=== PATIENT | female | born 1985 | race Caucasian/White ===

== ENCOUNTER 2018-02-17 03:52 | Observation (INO) | payer OTHER ==
[2018-02-17] VITALS (12 sets, daily range): BP systolic 100–144; BP diastolic 53–80; PULSE 56–85; RESP 16–20; TEMP 97.1–98.3; O2SAT 95–99
[~2018-02-17] VITALS: Ht 175.3 cm; Wt 94.6 kg
[~2018-02-17 03:52] MED LIST: HYDR-3533 PO; HYDR200T42 PO; LEXA10TA PO; METHO500 PO; OXYC1SOL5 PO; PAXI20TA26 PO; PROM25TA10 PO
[2018-02-17] MEDS ORDERED: SODIUM CHLORIDE 0.9% FLUSH 10 ML FLUSH IV FLUSH PRN ×2 (04:15→06:15)
[2018-02-17] MEDS ORDERED: BUPR100T4 PO (04:17)
[2018-02-17] MEDS ORDERED: LAMO100T PO (04:17)
[2018-02-17] MEDS ORDERED: ALPR.5 PO (04:18)
[2018-02-17] MEDS ORDERED: PLAQ200T PO (04:18)
[2018-02-17] MEDS ORDERED: BUSP10TA PO (04:19)
[2018-02-17] MEDS ORDERED: FLUV100T PO (04:19)
--- NOTE | 2018-02-17 04:22 | PD ---
HPI Chief Complaint: AMS Time Seen by Provider: 04:05 Travel History International Travel<30 days: No Contact w/Intl Traveler<30days: No Traveled to known affect area: No History of Present Illness HPI 32-year-old female presents to the emergency department by private transportation the care of her spouse for evaluation of confusion, left-sided headache, right-sided chest pain, and jerking tremor since Friday morning with acute worsening upon awakening just prior to arrival to the emergency department. Patient states she is not sure why she is here does not believe that she needs to be here has mild left-sided headache and right-sided chest pain and felt somewhat confused. reports that she was last seen normal approximately 1 AM she was going to sleep and then she awakened him with generalized twitching and jerking movements with seizure form like activity for 5-10 seconds and then seemed confusional afterwards. No trauma no tongue trauma no incontinence. No prior history of seizure form activity. Patient has recently been undergoing medication adjustments by her prescribing physician for anxiety and has been on multiple medications with various dosages and has had increasing twitching and jerking type spasms since medication adjustment has been occurring. Symptoms seem to escalate on Friday such that Friday evening she was having difficulty falling asleep and then again just prior to arrival to the emergency department has been noted episode of significant jerking and twitching while she was not responding to voice or tactile stimulation. As well as history of anxiety/depression disorder patient also has history of Sjogren's syndrome, rheumatoid arthritis, migraines,and kidney stones. LMP: 02/11/18, not . Current medications include plaquenil, lamotrigine, bupropion, fluvoxamine, xanax, and buspirone; buspirone is the newest medication addition. Pain is 5/10 in intensity. PFSH Past Medical History Narrative Medical anxiety/depression disorder, Sjogren's syndrome, rheumatoid arthritis, migraines ,kidney stones, gallbladder disease; no tobacco use no alcohol use; nursing notes reviewed Arthritis: Yes (RHEUMATOID) Depression: Yes (MILD) Cancer: No Cardiovascular Problems: No Cerebrovascular Accident: No Diminished Hearing: No Endocrine: No Gastrointestinal Disorders: Yes ( HX H PYLORI, GALLBLADDER PROBLEMS) Genitourinary: Yes Hepatitis: No Hiatal Hernia: No Immune Disorder: Yes (SJOGRENS SYNDOME) Kidney Stones: Yes Musculoskeletal: No Neurologic: Yes (MIGRAINES) Psychiatric: No Reproductive: No Respiratory: No Migraines: Yes Past Surgical History Abdominal Surgery: No Body Medical Devices: NONE Cardiac Surgery: No Ear Surgery: No Endocrine Surgery: No Eye Surgery: No Genitourinary Surgery: No Gynecologic Surgery: No Oral Surgery: No Thoracic Surgery: No Other Surgery: Yes Social History Alcohol Use: No Tobacco Use: No Substance Use: No Allergies-Medications (Allergen,Severity, Reaction): Coded Allergies: erythromycin base (Unverified Allergy, Mild, SHORTNESS OF BREATH, 02/17/18) Reported Meds & Prescriptions Reported Meds & Active Scripts Active Reported Fluvoxamine (Fluvoxamine Maleate) 100 Mg Tab 200 Mg PO DAILY Buspirone (Buspirone HCl) 10 Mg Tab 10 Mg PO TID Plaquenil (Hydroxychloroquine Sulfate) 200 Mg Tab 200 Mg PO BID Take with food Xanax (Alprazolam) 0.5 Mg Tab 0.5 Mg PO Q8H PRN Lamotrigine 100 Mg Tab 100 Mg PO DAILY Bupropion HCl 100 Mg Tab 150 Mg PO DAILY Review of Systems Except as stated in HPI: all other systems reviewed are Neg General / Constitutional: No: Fever HENT: No: Congestion Cardiovascular: Positive: Chest Pain or Discomfort (right sided), Syncope Respiratory: No: Shortness of Breath Gastrointestinal: Positive: Nausea (in route to the ED none now), No: Vomiting , Abdominal Pain Genitourinary: No: Dysuria, Flank Pain Musculoskeletal: No: Myalgias, Arthralgias Skin: No Rash Neurologic: Positive: Syncope, Tremor, Ataxia, Headache, Change in Mentation, Seizures (possible), No: Weakness, Dizziness, Focal Abnormalities, Coordination Problem, Slurred Speech, Incontinence Psychiatric: Positive: Anxiety Hematologic/Lymphatic: No: Lymph Node Enlargement Physical Exam Narrative GENERAL: Well-developed well-nourished female no acute distress no respiratory distress; GCS 15 SKIN: Warm and dry. HEAD: Atraumatic. Normocephalic. EYES: Pupils equal and round. Extraocular muscles intact. No scleral icterus. No injection or drainage. ENT: No nasal bleeding or discharge. Mucous membranes pink and moist. Airway is patent. NECK: Trachea midline. No JVD. Supple no meningismus. CARDIOVASCULAR: Regular rate and rhythm. RESPIRATORY: No accessory muscle use. Clear to auscultation. Breath sounds equal bilaterally. GASTROINTESTINAL: Abdomen soft, non-tender, nondistended. Hepatic and splenic margins not palpable. MUSCULOSKELETAL: Extremities without clubbing, cyanosis, or edema. No obvious deformities. NEUROLOGICAL: Awake and alert. No obvious cranial nerve deficits. Motor grossly within normal limits. Five out of 5 muscle strength in the arms and legs. No pronator drift. No limb ataxia. Sensory exam grossly intact as tested. DTRs 2+ and equal bilaterally. Normal speech. PSYCHIATRIC: Appropriate mood and affect; insight and judgment normal. Data Data Last Documented VS Vital Signs Date Time Temp Pulse Resp B/P (MAP) Pulse Ox O2 Delivery O2 Flow Rate FiO2 02/17/18 05:20 63 16 103/67 (79) 99 Room Air 02/17/18 04:00 98.3 Orders Orders Electrocardiogram (02/17/18 04:05) Complete Blood Count With Diff (02/17/18 04:05) Comprehensive Metabolic Panel (02/17/18 04:05) Creatine Kinase (Cpk) (02/17/18 04:05) Prothrombin Time / Inr (Pt) (02/17/18 04:05) Act Partial Throm Time (Ptt) (02/17/18 04:05) Thyroid Stimulating Hormone (02/17/18 04:05) Urinalysis - C+S If Indicated (02/17/18 04:05) Chest, Single Ap (02/17/18 04:05) Ct Brain W/O Iv Contrast(Rout) (02/17/18 04:05) Blood Glucose (02/17/18 04:05) Ecg Monitoring (02/17/18 04:05) Iv Access Insert/Monitor (02/17/18 04:05) Oximetry (02/17/18 04:05) Sodium Chloride 0.9% Flush (Ns Flush) (02/17/18 04:15) Drug Screen, Random Urine (02/17/18 04:05) Tylenol (Acetaminophen) (02/17/18 04:05) Salicylates (Aspirin) (02/17/18 04:05) Troponin I (02/17/18 04:05) Magnesium (Mg) (02/17/18 04:05) Ed Urine Pregnancytest Poc (02/17/18 04:05) Sodium Chlor 0.9% 1000 Ml Inj (Ns 1000 M (02/17/18 04:15) Ammonia (02/17/18 04:41) CKMB (02/17/18 04:10) CKMB% (02/17/18 04:10) Sodium Chlorid 0.9% 500 Ml Inj (Ns 500 M (02/17/18 05:00) Ketorolac Inj (Toradol Inj) (02/17/18 05:30) D-Dimer (02/17/18 05:25) Place In Observation (02/17/18 ) Vital Signs (Adult) Q4H (02/17/18 06:04) Activity Oob With Assistance (02/17/18 06:04) Diet Regular Basic (02/17/18 Breakfast) Sodium Chloride 0.9% Flush (Ns Flush) (02/17/18 06:15) Sodium Chloride 0.9% Flush (Ns Flush) (02/17/18 09:00) Acetaminophen (Tylenol) (02/17/18 06:15) Ondansetron Inj (Zofran Inj) (02/17/18 06:15) Basic Metabolic Panel (Bmp) (02/18/18 06:00) Complete Blood Count With Diff (02/18/18 06:00) Naloxone Inj (Narcan Inj) (02/17/18 06:15) Docusate Sodium-Senna (Joselin-Colace) (02/17/18 09:00) Magnesium Hydroxide Liq (Milk Of Magnesi (02/17/18 06:15) Sennosides (Senokot) (02/17/18 06:15) Bisacodyl Supp (Dulcolax Supp) (02/17/18 06:15) Lactulose Liq (Lactulose Liq) (02/17/18 06:15) Eeg Study (02/17/18 ) Consult Neurology (02/17/18 ) Lorazepam Inj (Ativan Inj) (02/17/18 06:15) ^ Seizure Precautions (02/17/18 06:04) Admit Order (Ed Use Only) (02/17/18 ) Aquaculture Worker / Telemetry HUGO.Q8H (02/17/18 06:07) Diet Heart Healthy (02/17/18 Breakfast) Activity Bed Rest (02/17/18 06:07) Notify Dr: Other (02/17/18 06:07) Labs Laboratory Tests Test 02/17/18 04:10 02/17/18 04:40 02/17/18 04:54 White Blood Count 5.8 TH/MM3 Red Blood Count 4.72 MIL/MM3 Hemoglobin 13.6 GM/DL Hematocrit 40.1 % Mean Corpuscular Volume 85.0 FL Mean Corpuscular Hemoglobin 28.8 PG Mean Corpuscular Hemoglobin Concent 33.9 % Red Cell Distribution Width 12.7 % Platelet Count 257 TH/MM3 Mean Platelet Volume 8.5 FL Neutrophils (%) (Auto) 46.5 % Lymphocytes (%) (Auto) 38.5 % Monocytes (%) (Auto) 10.6 % Eosinophils (%) (Auto) 3.5 % Basophils (%) (Auto) 0.9 % Neutrophils # (Auto) 2.7 TH/MM3 Lymphocytes # (Auto) 2.2 TH/MM3 Monocytes # (Auto) 0.6 TH/MM3 Eosinophils # (Auto) 0.2 TH/MM3 Basophils # (Auto) 0.1 TH/MM3 CBC Comment DIFF FINAL Differential Comment Prothrombin Time 10.1 SEC Prothromb Time International Ratio 1.0 RATIO Activated Partial Thromboplast Time 25.9 SEC Blood Urea Nitrogen 11 MG/DL Creatinine 0.95 MG/DL Random Glucose 89 MG/DL Total Protein 8.1 GM/DL Albumin 4.0 GM/DL Calcium Level 8.8 MG/DL Magnesium Level 2.3 MG/DL Alkaline Phosphatase 102 U/L Aspartate Amino Transf (AST/SGOT) 30 U/L Alanine Aminotransferase (ALT/SGPT) 30 U/L Total Bilirubin 0.1 MG/DL Sodium Level 140 MEQ/L Potassium Level 3.8 MEQ/L Chloride Level 106 MEQ/L Carbon Dioxide Level 29.1 MEQ/L Anion Gap 5 MEQ/L Estimat Glomerular Filtration Rate 68 ML/MIN Total Creatine Kinase 560 U/L Creatine Kinase MB 0.8 NG/ML Creatine Kinase MB % 0.1 % Troponin I LESS THAN 0.02 NG/ML Thyroid Stimulating Hormone 3rd Gen 3.700 uIU/ML Salicylates Level 2.5 MG/DL Acetaminophen Level LESS THAN 2.0 MCG/ML Urine Collection Type CLEAN CATCH Urine Color YELLOW Urine Turbidity CLEAR Urine pH 6.5 Urine Specific [place] 1.010 Urine Protein NEG mg/dL Urine Glucose (UA) NEG mg/dL Urine Ketones NEG mg/dL Urine Occult Blood TRACE Urine Nitrite NEG Urine Bilirubin NEG Urine Urobilinogen 0.2 MG/DL Urine Leukocyte Esterase NEG Urine RBC 4-9 /hpf Urine Squamous Epithelial Cells 0-5 /hpf Urine Bacteria OCC /hpf Microscopic Urinalysis Comment CULT NOT INDICATED Urine Opiates Screen NEG Urine Barbiturates Screen NEG Urine Amphetamines Screen NEG Urine Benzodiazepines Screen NEG Urine Cocaine Screen NEG Urine Cannabinoids Screen POS Ammonia 24 MCMOL/L [facility] Medical Decision Making Medical Screen Exam Complete: Yes Emergency Medical Condition: Yes Medical Record Reviewed: Yes Interpretation(s) EKG: Normal sinus rhythm rate [address] elevation injury pattern or ectopy noted, nonspecific T-wave septally POC hcg: negative CT brain w/o: CONCLUSION: Negative noncontrast head CT. Trevin Ledesma MD on February 17, 2018 at 5:19 Board Certified Radiologist. This report was verified electronically. UDS: Cannabinoids coags: grossly wnl NH3: 24, not elevated Acetaminophen level/salicylate level: Not elevated Differential Diagnosis Seizure, syncope, adverse medication reaction, migraine variant, ICH, viral syndrome, atypical chest pain, PE, CAD; also to consider serotonin syndrome, conversion reaction, tia/cva Narrative Course Patient placed on cardiac surgeon with continuous pulse oximetry IV access obtain stat CT brain noncontrast ordered along with specimens collected and sent for resulting EKG performed; NIHSS: 0; glucose 94 @ 4:33 reports she is back to her normal; patient reports persistent mild 5/10 headache not like her migraines only mild photophobia no nausea no focal numbness or weakness. @ 4:[address] Patient aware of abnormal CK and recommendation for observation admission for adverse medication reaction/interaction possible bupropion altered mentation versus polypharmacy versus migraine variant; this is been discussed with on- call medicine will admit for observation Physician Communication Physician Communication discussed with Dr Power -- OBS Diagnosis Primary Impression: Altered mental status, unspecified Qualified Codes: R41.82 - Altered mental status, unspecified Additional Impression: Adverse drug interaction Qualified Codes: T50.905A - Adverse effect of unspecified drugs, medicaments and biological substances, initial encounter Admitting Information Admitting Physician Requests: Observation Ashley Whitt MD Feb 17, 2018 04:22
[2018-02-17 04:27] LABS: AUTOMATED NEUTROPHIL # 2.7 TH/MM3 (1.8-7.7); BASOPHIL # 0.1 TH/MM3 (0-0.2); BASOPHIL % 0.9 % (0.0-2.0); EOSINOPHIL # 0.2 TH/MM3 (0-0.4); EOSINOPHIL % 3.5 % (0.0-4.0); HEMATOCRIT 40.1 % (35.0-46.0); HEMOGLOBIN 13.6 GM/DL (11.6-15.3); LYMPH % 38.5 % (9.0-44.0); LYMPHOCYTE # 2.2 TH/MM3 (1.0-4.8); MEAN CORPUSCULAR HEMOGLOBIN 28.8 PG (27.0-34.0); MEAN CORPUSCULAR HGB CONC 33.9 % (32.0-36.0); MEAN PLATELET VOLUME 8.5 FL (7.0-11.0); MONO % 10.6 % (0.0-8.0); MONOCYTE # 0.6 TH/MM3 (0-0.9); NEUT % 46.5 % (16.0-70.0); PLATELET COUNT 257 TH/MM3 (150-450); RED BLOOD COUNT 4.72 MIL/MM3 (4.00-5.30); RED CELL DISTRIBUTION WIDTH 12.7 % (11.6-17.2); WHITE BLOOD COUNT 5.8 TH/MM3 (4.0-11.0)
[2018-02-17 04:32] LABS: CHLORIDE 106 MEQ/L (98-107); SODIUM (NA) 140 MEQ/L (136-145)
[2018-02-17 04:35] LABS: CALCIUM 8.8 MG/DL (8.5-10.1)
[2018-02-17 04:36] LABS: BICARBONATE 29.1 MEQ/L (21.0-32.0); BLOOD UREA NITROGEN 11 MG/DL (7-18); GLUCOSE,RANDOM 89 MG/DL (74-106); MAGNESIUM 2.3 MG/DL (1.5-2.5); PROTHROMBIN TIME - PATIENT 10.1 SEC (9.8-11.6)
[2018-02-17 04:39] LABS: ALT (GPT) 30 U/L (10-53); AST (GOT) 30 U/L (15-37); CREATININE 0.95 MG/DL (0.50-1.00); GLOMERULAR FILTRATION RATE 68 ML/MIN (>89)
[2018-02-17 04:40] LABS: TOTAL BILIRUBIN ADULT 0.1 MG/DL (0.2-1.0); TOTAL PROTEIN 8.1 GM/DL (6.4-8.2)
[2018-02-17 04:42] LABS: ALKALINE PHOSPHATASE 102 U/L (45-117)
[2018-02-17 04:44] LABS: TROPONIN I LESS THAN 0.02 NG/ML (0.02-0.05)
[2018-02-17 04:45] LABS: BILIRUBIN, URINE NEG (NEG); BLOOD, URINE TRACE (NEG); GLUCOSE,URINE NEG (NEG); KETONE, URINE NEG (NEG); NITRITE,URINE NEG (NEG); PH, URINE 6.5 (5.0-8.5); URINE COLOR YELLOW (YELLW/STRAW); URINE LEUKOCYTE ESTERASE NEG (NEG)
[2018-02-17] MEDS: SODIUM CHLOR 0.9% 1000 ML INJ 1,000 ML IV SCH ×3 (04:58→18:52)
[2018-02-17] MEDS ORDERED: SODIUM CHLORID 0.9% 500 ML INJ 500 ML IV ONE (05:00)
[2018-02-17 05:17] LABS: BACTERIA, URINE OCC /hpf; SQUAMOUS EPITHELIAL CELL URINE 0-5 /hpf (0-5)
--- NOTE | 2018-02-17 05:20 | RADRPT ---
EXAM DATE/TIME: 02/17/2018 04:35 [facility] COMPARISON: No previous studies available for comparison. INDICATIONS : Altered mental status. RADIATION DOSE: 55.12 CTDIvol (mGy) MEDICAL HISTORY : Migraines. SURGICAL HISTORY : None. ENCOUNTER: Initial ACUITY: 1 day PAIN SCALE: 5/10 LOCATION: cranial TECHNIQUE: Multiple contiguous axial images were obtained of the head. Using automated exposure control and adj ustment of the mA and/or kV according to patient size, radiation dose was kept as low as reasonably a chievable to obtain optimal diagnostic quality images. DICOM format image data is available electro nically for review and comparison. FINDINGS: CEREBRUM: The ventricles are normal for age. No evidence of midline shift, mass lesion, hemorrhage or acute in farction. No extra-axial fluid collections are seen. POSTERIOR FOSSA: The cerebellum and brainstem are intact. The 4th ventricle is midline. The cerebellopontine angle i s unremarkable. EXTRACRANIAL: The visualized portion of the orbits is intact. SKULL: The calvaria is intact. No evidence of skull fracture. CONCLUSION: Negative noncontrast head CT. Trevin Ledesma MD on February 17, 2018 at 5:19 Board Certified Radiologist. This report was verified electronically.
[2018-02-17] MEDS ORDERED: KETOROLAC TROMETHAMINE 30 MG/ML (IVP) VIAL IV PUSH ONE (05:30)
--- NOTE | 2018-02-17 05:37 | RADRPT ---
EXAM DATE/TIME: 02/17/2018 04:17 [facility] COMPARISON: CHEST SINGLE AP, January 09, 2016, 4:00. INDICATIONS : Chest pain. MEDICAL HISTORY : Rheumatoid arthritis. Sjogren's syndrome. SURGICAL HISTORY : None. ENCOUNTER: Initial ACUITY: 1 day PAIN SCORE: 3/10 LOCATION: Right chest FINDINGS: A single view of the chest demonstrates the lungs to be symmetrically aerated without evidence of mas s, infiltrate or effusion. The cardiomediastinal contours are unremarkable. Osseous structures are intact. CONCLUSION: No acute cardiopulmonary disease demonstrated. Trevin Ledesma MD on February 17, 2018 at 5:35 Board Certified Radiologist. This report was verified electronically.
[2018-02-17 05:42] LABS: ACETAMINOPHEN LESS THAN 2.0 MCG/ML (10.0-30.0)
[2018-02-17] MEDS ORDERED: LORazepam 2 MG/ML VIAL IV PUSH PRN (06:15)
[2018-02-17] MEDS ORDERED: MAGNESIUM HYDROXIDE SUSP 30 ML CUP PO PRN (06:15)
[2018-02-17] MEDS ORDERED: ONDANSETRON HCL 4 MG/2 ML VIAL IVP PRN (06:15)
[2018-02-17] MEDS ORDERED: LACTULOSE SYRUP 20 GM/30 ML CUP PO PRN (06:15)
[2018-02-17] MEDS ORDERED: SENNOSIDES 8.6 MG TAB PO PRN (06:15)
[2018-02-17] MEDS ORDERED: ACETAMINOPHEN 325 MG TAB PO PRN (06:15)
[2018-02-17] MEDS ORDERED: NALOXONE HCL 0.4 MG/ML AMP IV PUSH PRN (06:15)
[2018-02-17] MEDS ORDERED: BISACODYL 10 MG SUPP RECTAL PRN (06:15)
[2018-02-17] MEDS: SODIUM CHLORIDE 0.9% FLUSH 10 ML FLUSH IV FLUSH SCH ×2 (08:49→20:25)
[2018-02-17] MEDS: DOCUSATE SODIUM 50 MG/SENNA 8.6 MG TAB PO SCH ×2 (08:49→20:25)
--- NOTE | 2018-02-17 11:41 | HHI.HP ---
[facility] Primary Care Physician Blu Brown MD Admission Diagnosis altered mental status; adverse medication reaction Diagnoses: Chief Complaint: Altered mental status Travel History International Travel<30 Days: No Contact w/Intl Traveler <30 Da: No Traveled to Known Affected Are: No History of Present Illness Patient is a 32-year-old female with a history of anxiety and depression who has been in follow with her care provider for management of symptoms of depression and sadness. She has had multiple medication changes over the last several months and has began having neurological symptoms in the form of tremors , confusions and convulsions over the last 48 hours. Patient was brought to the emergency room by her who is a customer support executive and was worried that she was having seizures. There is no history of seizures. Patient did have a headache prior to the seizure event and this improved with Toradol in the emergency room. The patient has been recommended for further evaluation by neurology and psychiatry due to these complaints. She also has a history of Sjogren's syndrome and rheumatoid arthritis and is under the care of a visualizer. For this she has been taking Plaquenil for the last 4 years and fluvoxamine Review of Systems Constitutional: COMPLAINS OF: Fatigue, DENIES: Diaphoretic episodes, Fever, Weight gain, Weight loss, Chills, Dizziness, Change in appetite, Night Sweats Endocrine: DENIES: Abnorml menstrual pattern, Heat/cold intolerance, Polydipsia , Polyuria, Polyphagia Eyes: DENIES: Blurred vision, Diplopia, Eye inflammation, Eye pain, Vision loss , Photosensitivity, Double Vision Ears, nose, mouth, throat: DENIES: Tinnitus, Hearing loss, Vertigo, Nasal discharge, Oral lesions, Throat pain, Hoarseness, Ear Pain, Running Nose, Epistaxis, Sinus Pain, Toothache, Odynophagia Respiratory: DENIES: Apneas, Cough, Snoring, Wheezing, Hemoptysis, Sputum production, Shortness of breath Cardiovascular: DENIES: Chest pain, Palpitations, Syncope, Dyspnea on Exertion , PND, Lower Extremity Edema, Orthopnea, Claudication Gastrointestinal: DENIES: Abdominal pain, Black stools, Bloody stools, Constipation, Diarrhea, Nausea, Vomiting, Difficulty Swallowing, Anorexia Genitourinary: DENIES: Abnormal vaginal bleeding, Dysmenorrhea, Dyspareunia, Sexual dysfunction, Urinary frequency, Urinary incontinence, Urgency, Hematuria , Dysuria, Nocturia, Vaginal discharge Musculoskeletal: DENIES: Joint pain, Muscle aches, Stiffness, Joint Swelling, Back pain, Neck pain Integumentary: DENIES: Abnormal pigmentation, Pruritus, Rash, Nail changes, Breast masses, Breast skin changes, Nipple discharge Hematologic/lymphatic: DENIES: Bruising, Lymphadenopathy Immunologic/allergic: DENIES: Eczema, Urticaria Neurologic: COMPLAINS OF: Headache, Seizures, Tremor, DENIES: Abnormal gait, Localized weakness, Paresthesias, Speech Problems, Poor Balance Psychiatric: COMPLAINS OF: Anxiety, Confusion, Mood changes, Depression, DENIES : Hallucinations, Agitation, Suicidal Ideation, Homicidal Ideation, Delusions Except as stated in HPI: all other systems reviewed are Neg Past Family Social History Past Medical History Depression/anxiety Sjogren's syndrome Rheumatoid arthritis Past Surgical History None Reported Medications Reviewed in the EMR, patient has been on bupropion, lamotrigine, Plaquenil, buspirone, fluvoxamine Allergies: Coded Allergies: erythromycin base (Unverified Allergy, Mild, SHORTNESS OF BREATH, 02/17/18) Active Ordered Medications Reviewed in the EMR Family History Family history depression Social History No tobacco or alcohol dependency Works in radiology at [employer] Physical Exam Vital Signs Vital Signs Date Time Temp Pulse Resp B/P (MAP) Pulse Ox O2 Delivery O2 Flow Rate FiO2 02/17/18 08:00 97.2 64 16 109/53 (71) 99 02/17/18 07:22 02/17/18 07:02 98 Room Air 02/17/18 07:00 68 18 113/71 (85) 98 Room Air 02/17/18 06:20 73 16 100/59 (73) 99 Room Air 02/17/18 05:20 63 16 103/67 (79) 99 Room Air 02/17/18 04:16 85 18 95 Room Air 02/17/18 04:00 98.3 85 18 144/80 (101) 95 Physical Exam GENERAL: This is a well-nourished, well-developed patient, tearful but calm SKIN: No rashes, ecchymoses or lesions. Cool and dry. HEAD: Atraumatic. Normocephalic. No temporal or scalp tenderness. EYES: Pupils equal round and reactive. Extraocular motions intact. No scleral icterus. No injection or drainage. ENT: Nose without bleeding, purulent drainage or septal hematoma. Throat without erythema, tonsillar hypertrophy or exudate. Uvula midline. Airway patent. NECK: Trachea midline. No JVD or lymphadenopathy. Supple, nontender, no meningeal signs. CARDIOVASCULAR: Regular rate and rhythm without murmurs, gallops, or rubs. RESPIRATORY: Clear to auscultation. Breath sounds equal bilaterally. No wheezes , rales, or rhonchi. GASTROINTESTINAL: Abdomen soft, non-tender, nondistended. No hepato-splenomegaly , or palpable masses. No guarding. MUSCULOSKELETAL: Extremities without clubbing, cyanosis, or edema. No joint tenderness, effusion, or edema noted. No calf tenderness. Negative Homans sign bilaterally. NEUROLOGICAL: Awake and alert. Cranial nerves II through XII intact. Motor and sensory grossly within normal limits. Five out of 5 muscle strength in all muscle groups. Normal speech. Laboratory Laboratory Tests Test 02/17/18 04:10 02/17/18 04:40 02/17/18 04:54 White Blood Count 5.8 Red Blood Count 4.72 Hemoglobin 13.6 Hematocrit 40.1 Mean Corpuscular Volume 85.0 Mean Corpuscular Hemoglobin 28.8 Mean Corpuscular Hemoglobin Concent 33.9 Red Cell Distribution Width 12.7 Platelet Count 257 Mean Platelet Volume 8.5 Neutrophils (%) (Auto) 46.5 Lymphocytes (%) (Auto) 38.5 Monocytes (%) (Auto) 10.6 Eosinophils (%) (Auto) 3.5 Basophils (%) (Auto) 0.9 Neutrophils # (Auto) 2.7 Lymphocytes # (Auto) 2.2 Monocytes # (Auto) 0.6 Eosinophils # (Auto) 0.2 Basophils # (Auto) 0.1 CBC Comment DIFF FINAL Differential Comment Prothrombin Time 10.1 Prothromb Time International Ratio 1.0 Activated Partial Thromboplast Time 25.9 D-Dimer Quantitative (PE/DVT) 0.33 Blood Urea Nitrogen 11 Creatinine 0.95 Random Glucose 89 Total Protein 8.1 Albumin 4.0 Calcium Level 8.8 Magnesium Level 2.3 Alkaline Phosphatase 102 Aspartate Amino Transf (AST/SGOT) 30 Alanine Aminotransferase (ALT/SGPT) 30 Total Bilirubin 0.1 Sodium Level 140 Potassium Level 3.8 Chloride Level 106 Carbon Dioxide Level 29.1 Anion Gap 5 Estimat Glomerular Filtration Rate 68 Total Creatine Kinase 560 Creatine Kinase MB 0.8 Creatine Kinase MB % 0.1 Troponin I LESS THAN 0.02 Thyroid Stimulating Hormone 3rd Gen 3.700 Salicylates Level 2.5 Acetaminophen Level LESS THAN 2.0 Urine Collection Type CLEAN CATCH Urine Color YELLOW Urine Turbidity CLEAR Urine pH 6.5 Urine Specific [place] 1.010 Urine Protein NEG Urine Glucose (UA) NEG Urine Ketones NEG Urine Occult Blood TRACE Urine Nitrite NEG Urine Bilirubin NEG Urine Urobilinogen 0.2 Urine Leukocyte Esterase NEG Urine RBC 4-9 Urine Squamous Epithelial Cells 0-5 Urine Bacteria OCC Microscopic Urinalysis Comment CULT NOT INDICATED Urine Opiates Screen NEG Urine Barbiturates Screen NEG Urine Amphetamines Screen NEG Urine Benzodiazepines Screen NEG Urine Cocaine Screen NEG Urine Cannabinoids Screen POS Ammonia 24 Result Diagram: 02/17/1840902/17/18409 Assessment and Plan Problem List: (1) Adverse drug interaction ICD Code: T50.905A - Adverse effect of unspecified drugs, medicaments and biological substances, initial encounter Status: Acute Plan: Patient appears to have had multiple drugs for anxiety depression over the last several months. She appears to have quite a bit of side effects and perhaps this is due to her anti-drugs interacting with her current medications for her rheumatological processes. Psychiatry to follow-up for further drug recommendations Rule out organic causes as well (2) Altered mental status, unspecified ICD Code: R41.82 - Altered mental status, unspecified Status: Acute Plan: Appears resolved and likely medication related with probable toxic encephalopathy We will continue observation Electrolytes stable CT of the head unremarkable EEG pending (3) Anxiety and depression ICD Code: F41.9 - Anxiety disorder, unspecified; F32.9 - Major depressive disorder, single episode, unspecified Plan: Patient on multiple therapeutic agents which appear to have been changed rather frequently. Will appreciate psychiatric input with further workup. Patient had adverse reaction on Klonopin with suicidal thoughts. At this time there is no suicidal or homicidal ideation Problem Qualifiers (1) Adverse drug interaction: Qualified Codes: T50.905A - Adverse effect of unspecified drugs, medicaments and biological substances, initial encounter (2) Altered mental status, unspecified: Qualified Codes: R41.82 - Altered mental status, unspecified Rola Estrada MD Feb 17, 2018 11:41
--- NOTE | 2018-02-17 15:30 | EKG ---
Date Performed: 02/17/2018 Time Performed: 04:16:59 PTAGE: 32 years EKG: Sinus rhythm NORMAL ECG Since the PREVIOUS TRACING , no significant change noted PREVIOUS TRACIN01/09/2016 03.03 DOCTOR: Joel Pena Interpretating Date/Time 02/17/2018 15:22:44
--- NOTE | 2018-02-17 20:16 | MB ---
cc: Josselyn Garcia MD, Dalia MD DATE: 02/17/2018 REASON FOR CONSULTATION: Possible seizure. 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 She has not been able to see a psychiatrist, has been put on multiple medications and changes over the last several months. The last medicine was BuSpar. She cannot tell me the dose. She was feeling better then the last few days started having either myoclonic type events versus possible seizures. No incontinence, no tongue biting. Some confusion afterwards. Psychiatry is pending to see her. She has taking Plaquenil for the last 4 years as well as Fluvoxamine. PAST MEDICAL HISTORY: History of anxiety, depression, Sjogren's, rheumatoid arthritis, migraines and nephrolithiasis. SURGICAL HISTORY: None. MEDICATIONS: Her home medicines are reviewed Bupropion, buspirone, lamotrigine, Plaquenil and fluvoxamine. CURRENT MEDICATIONS: P.r.n. such as Ativan, magnesium, hydroxide, Narcan, Zofran, etc. ALLERGIES: ERYTHROMYCIN. FAMILY HISTORY: Depression. SOCIAL HISTORY: No tobacco or alcohol. 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 . PHYSICAL EXAMINATION: VITAL SIGNS: Temperature is 97.4, pulse 72, respiratory rate 16, blood pressure 128/62. NEUROLOGIC: She is awake, alert, oriented, fluent, at times tearful. Pupils reactive. Face symmetrical. Tongue midline. Motor quiñones, she does not exhibit any signs of weakness as far as drift or leg lag. Toes are downgoing. DTRs are 1+. Gait is withheld. Cerebellar is normal. IMAGING: Chest x-ray: Nothing acute. CT head negative. LABORATORY DATA: CBC is really unremarkable. Coag panel unremarkable. Chemistries - CK is 560. Ammonia 24. GFR 68. TSH normal. Urine really unremarkable. Tox screen positive for cannabinoids. IMPRESSION: Possible seizure versus myoclonic type reaction from medications, toxic etiology. She has no history of ever having seizures. Recommend having psychiatry assessed her, take her off of all of her medications. I would continue her lamotrigine since it does have an antiepileptic indication. I am not sure what her current dose it. Looking back at the emergency room notes it states 100 mg daily. Certainly, she can continue that, but there may be some problems with the fluvoxamine with the buspirone, as well as the bupropion. Bupropion certainly can contribute to seizures. She states she has felt the best she ever did about a year ago when she was on Lexapro with bupropion, however, that was stopped because it seemed that the treatment failed and her depression worsened. We will get an electroencephalogram report that was completed today. Maintain seizure precautions. She has what she describes as shakes when she falls asleep, but not when she awakens. It seems like it only occurring when she falls asleep, which I would not be too concerned about. It does not appear when she wakes up. At this point, we will continue current care. If she is stable from my perspective, she certainly can be discharged home with psychiatrist recommendations. I would be glad to see her as an outpatient in the office. MD GUERDA Sommer/ , 07:53 PM , 08:14 PM
[2018-02-18] VITALS: BP 111/54; PULSE 69; RESP 20; TEMP 96.8; O2SAT 93
[2018-02-18] MEDS: SODIUM CHLOR 0.9% 1000 ML INJ 1,000 ML IV SCH (03:02)
[2018-02-18 04:00] VITALS: BP 116/63; PULSE 67; RESP 20; TEMP 95.6; O2SAT 99
[2018-02-18 06:29] LABS: AUTOMATED NEUTROPHIL # 1.7 TH/MM3 (1.8-7.7); BASOPHIL % 0.8 % (0.0-2.0); EOSINOPHIL # 0.2 TH/MM3 (0-0.4); EOSINOPHIL % 3.2 % (0.0-4.0); HEMATOCRIT 35.6 % (35.0-46.0); HEMOGLOBIN 11.6 GM/DL (11.6-15.3); LYMPH % 48.9 % (9.0-44.0); LYMPHOCYTE # 2.3 TH/MM3 (1.0-4.8); MEAN CELL VOLUME 85.9 FL (80.0-100.0); MEAN CORPUSCULAR HEMOGLOBIN 28.1 PG (27.0-34.0); MEAN CORPUSCULAR HGB CONC 32.7 % (32.0-36.0); MEAN PLATELET VOLUME 8.4 FL (7.0-11.0); MONO % 10.9 % (0.0-8.0); MONOCYTE # 0.5 TH/MM3 (0-0.9); NEUT % 36.2 % (16.0-70.0); PLATELET COUNT 199 TH/MM3 (150-450); RED BLOOD COUNT 4.14 MIL/MM3 (4.00-5.30); RED CELL DISTRIBUTION WIDTH 12.2 % (11.6-17.2); WHITE BLOOD COUNT 4.7 TH/MM3 (4.0-11.0)
[2018-02-18 06:50] LABS: CALCIUM 8.2 MG/DL (8.5-10.1)
[2018-02-18 06:51] LABS: BICARBONATE 26.1 MEQ/L (21.0-32.0)
[2018-02-18 06:54] LABS: CREATININE 0.63 MG/DL (0.50-1.00)
[2018-02-18 07:50] VITALS: BP 123/85; PULSE 66; RESP 20; TEMP 97.9; O2SAT 98
[2018-02-18] MEDS: DOCUSATE SODIUM 50 MG/SENNA 8.6 MG TAB PO SCH (08:09)
[2018-02-18] MEDS: SODIUM CHLORIDE 0.9% FLUSH 10 ML FLUSH IV FLUSH SCH (08:09)
--- NOTE | 2018-02-18 08:27 | MG ---
cc: Candelario Houser MD REFERRING PHYSICIAN: Dr. Power INDICATIONS: An EEG was obtained on this 32 years old patient with history of movement, jerking, possible seizures. DESCRIPTION: The patient is described as awake. There are low to mid amplitude 10-12 per second alpha rhythms diffusely. There is low-amplitude beta activity frontally. The patient is drowsy and there are some theta rhythms. There is more beta activity in drowsiness. Photic stimulation showed no changes. INTERPRETATION: Normal awake and drowsy electroencephalogram. Candelario Houser MD [facility]/ , 09:02 PM , 09:30 PM
[2018-02-18] MEDS ORDERED: ALPR.5 PO (10:26)
--- NOTE | 2018-02-18 10:27 | HHI.DCPOC ---
Discharge Care Plan Diagnosis: (1) Anxiety and depression Goals to Promote Your Health * To prevent worsening of your condition and complications * To maintain your health at the optimal level Directions to Meet Your Goals Take your medications as prescribed Follow your dietary instruction Follow activity as directed Keep your appointments as scheduled Take your immunizations and boosters as scheduled If your symptoms worsen call your PCP, if no PCP go to Urgent Care Center or Emergency Room Smoking is Dangerous to Your Health. Avoid second hand smoke Call the 24-hour hour crisis hotline for domestic abuse at Rola Estrada MD Feb 18, 2018 10:27
--- NOTE | 2018-02-18 10:29 | HHI.DS ---
Discharge Summary Admission Date Feb 17, 2018 at 06:08 Discharge Date: Feb 18, 2018 Admitting Diagnosis altered mental status; adverse medication reaction (1) Adverse drug interaction ICD Code: T50.905A - Adverse effect of unspecified drugs, medicaments and biological substances, initial encounter Status: Acute (2) Altered mental status, unspecified ICD Code: R41.82 - Altered mental status, unspecified Status: Acute (3) Anxiety and depression ICD Code: F41.9 - Anxiety disorder, unspecified; F32.9 - Major depressive disorder, single episode, unspecified Procedures none Brief History - From Admission Patient is a 32-year-old female with a history of anxiety and depression who has been in follow with her care provider for management of symptoms of depression and sadness. She has had multiple medication changes over the last several months and has began having neurological symptoms in the form of tremors , confusions and convulsions over the last 48 hours. Patient was brought to the emergency room by her who is a tape librarian and was worried that she was having seizures. There is no history of seizures. Patient did have a headache prior to the seizure event and this improved with Toradol in the emergency room. The patient has been recommended for further evaluation by neurology and psychiatry due to these complaints. She also has a history of Sjogren's syndrome and rheumatoid arthritis and is under the care of a director market intelligence. For this she has been taking Plaquenil for the last 4 years and fluvoxamine CBC/BMP: 02/18/18 0605 02/18/18 0605 Significant Findings Laboratory Tests Test 02/17/18 04:10 02/17/18 04:40 02/17/18 04:54 02/18/18 06:05 Monocytes (%) (Auto) 10.6 % (0.0-8.0) 10.9 % (0.0-8.0) Total Bilirubin 0.1 MG/DL (0.2-1.0) Estimat Glomerular Filtration Rate 68 ML/MIN (>89) Total Creatine Kinase 560 U/L (26-192) Troponin I LESS THAN 0.02 NG/ML Salicylates Level 2.5 MG/DL (2.8-20.0) Acetaminophen Level LESS THAN 2.0 MCG/ML Urine RBC 4-9 /hpf (0-3) Urine Bacteria OCC /hpf (NONE) Urine Cannabinoids Screen POS (NEG) Lymphocytes (%) (Auto) 48.9 % (9.0-44.0) Neutrophils # (Auto) 1.7 TH/MM3 (1.8-7.7) Calcium Level 8.2 MG/DL (8.5-10.1) Chloride Level 113 MEQ/L (98-107) Imaging Last Impressions Head CT 02/17/18404 Signed Impressions: Service Date/Time: Saturday, February 17, 2018 04:35 - CONCLUSION: Negative noncontrast head CT. Trevin Ledesma MD Chest X-Ray 02/17/18404 Signed Impressions: Service Date/Time: Saturday, February 17, 2018 04:17 - CONCLUSION: No acute cardiopulmonary disease demonstrated. Trevin Ledesma MD Pt update on day of discharge Doing better EEG unremarkable Neurology and psychiatry consultations appreciated Hospital Course Patient is a 29-year-old female with history of anxiety and depression. She did have adverse reaction to multiple medications prescribed and likely a early serotonin syndrome. Patient's medications were adjusted by psychiatry. She was discharged home to continue with outpatient follow-up Pt Condition on Discharge: Good Discharge Disposition: Discharge Home Discharge Time: <= 30 minutes Discharge Instructions DIET: Follow Instructions for: As Tolerated, No Restrictions Activities you can perform: Regular-No Restrictions Follow up Referrals: Psychiatry Adult - 03/02/18 with Monroe Cho M.d. Continued Medications: Alprazolam (Xanax) 0.5 Mg Tab 0.5 MG PO Q8H PRN for ANXIETY, #30 TAB 0 Refills (This prescription has been renewed) Hydroxychloroquine (Plaquenil) 200 Mg Tab 200 MG PO BID, #60 TAB 0 Refills Take with food Discontinued Medications: Lamotrigine (Lamotrigine) 100 Mg Tab 100 MG PO DAILY for Control Seizures, #30 TAB 0 Refills Rola Estrada MD Feb 18, 2018 10:29
--- NOTE | 2018-02-18 11:11 | PD.PSY.CON ---
Provisional Diagnosis Admission Date Feb 17, 2018 at 06:08 Friedens I. Major depressive disorder, recurrent, without psychosis, panic disorder, cannabis use disorder Friedens II. Deferred Friedens III. Sjogren's syndrome Friedens IV. Multiple psychotropic Friedens V. 55 History of Present Illness Service Psychiatry Consult Requested By Medicine Reason for Consult Altered mental status Primary Care Physician Blu Brown MD HPI The patient is a 32-year-old woman, , domiciled in [place] , no kids, employed at [employer], with psychiatric history of depression and anxiety, no previous psychiatric hospitalizations, no previous suicide attempts, she has been prescribed by Dr. Greco with Luvox 200 mg, lamotrigine 200 mg, Xanax 0.5 mg 3 times daily, BuSpar 20 mg 3 times daily, Wellbutrin 150 mg twice daily, she also has history of cannabis use disorder, medical history of Sjogren's disease,.She has had multiple medication changes over the last several months and has began having neurological symptoms in the form of tremors, confusions and convulsions over the last 48 hours. Patient was brought to the emergency room by her who is a middle school math teacher and was worried that she was having seizures. There is no history of seizures. Patient did have a headache prior to the seizure event and this improved with Toradol in the emergency room. The patient has been recommended for further evaluation by neurology and psychiatry due to these complaints. EMR was reviewed. Case widely discussed with medical team. On psychiatric evaluation the patient is calm, cooperative tearful at times. The patient reports that she is an "easy crier" and she has been emotional and feeling guilty "because maybe I have been misusing by medication in some way". Patient reports that she is fully compliant with her psychotropic, she reported that she does not take medications more than prescribed, "so I could not understand what happened to me". The patient reports that at this moment she has good mood, she feels positive, ready to go back to work. She states that she has an appointment with Dr. Cho coming in 2 weeks to continue her psychiatric care. She has been having symptoms of depression and anxiety on and off in the last months, but current medication regimen is really helping. About 2 days ago she started to feel very anxious, jittery, hypervigilant "light when you are intoxicated with coffee". She says that that feeling increase in a period of 8-12 hour to the point that she could not sleep, and then the next day she was also confused and then brought to the hospital. At this moment the patient denies suicidal and homicidal ideation, she denies visual and auditory hallucinations. The patient is logical, coherent and relevant. Fully oriented 3. Review of Systems Constitutional: DENIES: Diaphoretic episodes, Fatigue, Fever, Weight gain, Weight loss, Chills, Dizziness, Change in appetite, Night Sweats Endocrine: DENIES: Abnorml menstrual pattern, Heat/cold intolerance, Polydipsia , Polyuria, Polyphagia Eyes: DENIES: Blurred vision, Diplopia, Eye inflammation, Eye pain, Vision loss , Photosensitivity, Double Vision Ears, nose, mouth, throat: DENIES: Tinnitus, Hearing loss, Vertigo, Nasal discharge, Oral lesions, Throat pain, Hoarseness, Ear Pain, Running Nose, Epistaxis, Sinus Pain, Toothache, Odynophagia Respiratory: DENIES: Apneas, Cough, Snoring, Wheezing, Hemoptysis, Sputum production, Shortness of breath Cardiovascular: DENIES: Chest pain, Palpitations, Syncope, Dyspnea on Exertion , PND, Lower Extremity Edema, Orthopnea, Claudication Gastrointestinal: DENIES: Abdominal pain, Black stools, Bloody stools, Constipation, Diarrhea, Nausea, Vomiting, Difficulty Swallowing, Anorexia Musculoskeletal: DENIES: Joint pain, Muscle aches, Stiffness, Joint Swelling, Back pain, Neck pain Integumentary: DENIES: Abnormal pigmentation, Pruritus, Rash, Nail changes, Breast masses, Breast skin changes, Nipple discharge Hematologic/lymphatic: DENIES: Bruising, Lymphadenopathy Immunologic/allergic: DENIES: Eczema, Urticaria Neurologic: DENIES: Abnormal gait, Headache, Localized weakness, Paresthesias, Seizures, Speech Problems, Tremor, Poor Balance Psychiatric: DENIES: Anxiety, Confusion, Mood changes, Depression, Hallucinations, Agitation, Suicidal Ideation, Homicidal Ideation, Delusions Past Family Social History Coded Allergies: erythromycin base (Unverified Allergy, Mild, SHORTNESS OF BREATH, 02/17/18) Active Scripts Alprazolam (Xanax) 0.5 Mg Tab, 0.5 MG PO Q8H Y for ANXIETY, #30 TAB 0 Refills Prov:Rola Estrada MD 02/18/18 Reported Medications Hydroxychloroquine (Plaquenil) 200 Mg Tab, 200 MG PO BID, #60 TAB 0 Refills Take with food 02/17/18 Lamotrigine (Lamotrigine) 100 Mg Tab, 100 MG PO DAILY for Control Seizures, #30 TAB 0 Refills 02/17/18 Discontinued Reported Medications Fluvoxamine (Fluvoxamine) 100 Mg Tab, 200 MG PO DAILY, #30 TAB 0 Refills 02/17/18 Buspirone (Buspirone) 10 Mg Tab, 10 MG PO TID for Anxiety, TAB 0 Refills 02/17/18 Bupropion HCl (Bupropion HCl) 100 Mg Tab, 150 MG PO DAILY for Control Depression , TAB 0 Refills 02/17/18 Escitalopram (Lexapro) 10 Mg Tab, 10 MG PO DAILY, #30 TAB 0 Refills 06/12/17 Paroxetine Hcl (Paxil) 20 Mg Tab, 40 MG PO DAILY 04/13/13 Discontinued Scripts Promethazine (Phenergan) 25 Mg Tablet, 25 MG PO Q6H Y for NAUSEA OR VOMITING, # 10 TAB 0 Refills Prov:Ashley Whitt MD 06/12/17 Hydrocodone-Acetaminophen (Lortab) 5-325 Mg Tab, 1 TAB PO Q6H Y for PAIN, #12 TAB 0 Refills Prov:Ashley Whitt MD 06/12/17 Oxycodone W/ Acetaminophen (Oxycodone/Acetaminophen 5-325 mg/5Ml) 5 mg/325 mg Tab, 1 TAB PO Q4H Y for PAIN GREATER THAN 5, #20 TAB 0 Refills Prov:Sameer Warren MD 06/05/16 Methocarbamol (Robaxin 500 Mg Tab) 500 Mg Tab, 500 MG PO Q8HR Y for spasm, #15 TAB 0 Refills Prov:Sameer Warren MD 06/05/16 Current Medications Medications (Trade) Dose Ordered Sig/Brianna Route Start Time Stop Time Status Last Admin Sodium Chloride 1,000 ml @ 125 mls/hr Q8H IV 02/17/18 04:15 02/18/18 03:02 (NS Flush) 2 ml UNSCH PRN IV FLUSH 02/17/18 06:15 (NS Flush) 2 ml BID IV FLUSH 02/17/18 09:00 02/18/18 08:09 (Tylenol) 650 mg Q4H PRN PO 02/17/18 06:15 (Zofran Inj) 4 mg Q6H PRN IVP 02/17/18 06:15 (Narcan Inj) 0.4 mg UNSCH PRN IV PUSH 02/17/18 06:15 (Joselin-Colace) 1 tab BID PO 02/17/18 09:00 02/18/18 08:09 (Milk Of Magnesia Liq) 30 ml Q12H PRN PO 02/17/18 06:15 (Senokot) 17.2 mg Q12H PRN PO 02/17/18 06:15 (Dulcolax Supp) 10 mg DAILY PRN RECTAL 02/17/18 06:15 (Lactulose Liq) 30 ml DAILY PRN PO 02/17/18 06:15 (Ativan Inj) 1 mg Q15M PRN IV PUSH 02/17/18 06:15 02/18/18 08:10 Family Psych History Her mother and her father have depression Social History Patient was born and raised in [place], she lives in [place] with her , no kids, employed at [employer], she has an associate degree Patient's Strengths (min. 2) Family support, employed Physical Exam No tremors, no EPS, no psychomotor retardation or agitation, no stiffness at this moment Vital Signs Vital Signs Date Time Temp Pulse Resp B/P (MAP) Pulse Ox O2 Delivery O2 Flow Rate FiO2 02/18/18 07:50 97.9 66 20 123/85 (98) 98 02/17/18 07:02 Room Air I/O 02/18/18 02/18/18 02/19/18 08:00 16:00 00:00 Intake Total 1660 ml Balance 1660 ml Lab Results Test 02/18/18 06:05 White Blood Count 4.7 TH/MM3 Red Blood Count 4.14 MIL/MM3 Hemoglobin 11.6 GM/DL Hematocrit 35.6 % Mean Corpuscular Volume 85.9 FL Mean Corpuscular Hemoglobin 28.1 PG Mean Corpuscular Hemoglobin Concent 32.7 % Red Cell Distribution Width 12.2 % Platelet Count 199 TH/MM3 Mean Platelet Volume 8.4 FL Neutrophils (%) (Auto) 36.2 % Lymphocytes (%) (Auto) 48.9 % Monocytes (%) (Auto) 10.9 % Eosinophils (%) (Auto) 3.2 % Basophils (%) (Auto) 0.8 % Neutrophils # (Auto) 1.7 TH/MM3 Lymphocytes # (Auto) 2.3 TH/MM3 Monocytes # (Auto) 0.5 TH/MM3 Eosinophils # (Auto) 0.2 TH/MM3 Basophils # (Auto) 0.0 TH/MM3 CBC Comment DIFF FINAL Differential Comment Blood Urea Nitrogen 7 MG/DL Creatinine 0.63 MG/DL Random Glucose 84 MG/DL Calcium Level 8.2 MG/DL Sodium Level 145 MEQ/L Potassium Level 4.1 MEQ/L Chloride Level 113 MEQ/L Carbon Dioxide Level 26.1 MEQ/L Anion Gap 6 MEQ/L Estimat Glomerular Filtration Rate 109 ML/MIN Mental Status Examination Appearance: Appropriate Consciousness: Alert Orientation: x4 Motor Activity: Normal gait Speech: Unremarkable Language: Adequate Fund of Knowledge: Adequate Attention and Concentration: Adequate Memory: Unremarkable Mood: Appropriate Affect: Appropriate Thought Process & Associations: Intact Thought Content: Appropriate Hallucination Type: None Delusion Type: None Suicidal Ideation: No Suicidal Plan: No Suicidal Intention: No Homicidal Ideation: No Homicidal Plan: No Homicidal Intention: No Insight: Adequate Judgment: Adequate Assessment & Plan Problem List: (1) Anxiety and depression ICD Codes: F41.9 - Anxiety disorder, unspecified; F32.9 - Major depressive disorder, single episode, unspecified Assessment & Plan: On psychiatric evaluation today the patient does not present any neuropsychiatric symptoms that require an immediate psychiatric intervention, she does report feeling of sadness and guiltiness in the context of current hospitalization and recent symptoms, but she denies hopelessness, she denies helplessness, she denies worthlessness, she denies anhedonia, she denies anxiety, she denies suicidal or homicidal ideation, she denies visual and auditory hallucinations. Patient is logical, coherent and relevant. Oriented 3 at the moment. She does have an extensive history of anxiety and depression, she has been in treatment with her OB/gym, in psychotropic regimen mentioned above. She does not have any psychiatric hospitalization, no suicidal attempts. Her recent described symptoms of anxiety, jitteriness, insomnia, AMS were most probably related with interaction with medications/ potential benzodiazepine withdrawal/hyperserotoninergic state. My recommendation is to stop BuSpar 20 mg, fluvoxamine 200 mg as well as Wellbutrin 150 mg twice daily due to their high risk of drug to drug interaction , increased risk of serotonergic syndrome and also decreased seizure threshold. Continue Xanax 0.5 mg 3 times daily for anxiety and lamotrigine 200 mg. I have provided the patient with extensive psychoeducation and support. My strongest recommendation is to try to discuss a more appropriate psychotropic regimen with psychiatrist Dr. Cho. Consult appreciated. Assessment & Plan Estimated LOS: Prabhakar Diaz MD Feb 18, 2018 11:11
[2018-02-18 11:20] VITALS: BP 111/61; PULSE 78; RESP 20; TEMP 97.7; O2SAT 99
== END 2018-02-18 13:31 | disposition home or self-care (01) ==
LOC: PHED 03:52 → PHEDA 06:08 → PH3B 07:30
PROVIDERS: ADMIT Hospitalist; ATTEND Hospitalist
DX: T50.905A Adverse effect of unspecified drugs, medicaments and biological substances, initial encounter (principal); R41.82 Altered mental status, unspecified; F41.9 Anxiety disorder, unspecified; F32.9 Major depressive disorder, single episode, unspecified; M35.00 Sjogren syndrome, unspecified; M06.9 Rheumatoid arthritis, unspecified; R51 Headache; R07.9 Chest pain, unspecified; R25.1 Tremor, unspecified; Z79.899 Other long term (current) drug therapy
CPT/HCPCS: 70450; 71045; 80048; 80053; 80307; 81001; 82140; 82550; 82552; 83735; 84443; 84484; 84703; 85025; 85379; 85610; 85730; 93005; 95819; 96361; 96374; 96376; 99285; G0378; J1885; J2060; J7030; J7040